=== PATIENT | female | born 1970 ===

== ENCOUNTER 2018-02-11 21:05 | Inpatient (IN) | payer SELFPAY ==
[~2018-02-11] VITALS: Ht 157.5 cm; Wt 72.6 kg
--- NOTE | 2018-02-11 23:17 | NUR ---
Dr. Britt at bedside for MSE.
[2018-02-11] MEDS ORDERED: ONDANSETRON 4 MG/2 ML VIAL IV ONE (23:30)
[2018-02-11] MEDS ORDERED: MORPHINE SULFATE 2 MG/1 ML DISP.SYRIN IV ONE (23:30)
[2018-02-11] MEDS ORDERED: IV NORMAL SALINE 1000 ML BAG IV ONE (23:30)
--- NOTE | 2018-02-11 23:42 | NUR ---
Pt out of ER for CT.
[2018-02-11 23:44] LABS: BASOPHILS # (AUTO) 0.1 K/uL (0.0-8.0); BASOPHILS % (AUTO) 0.7 % (0.0-2.0); EOSINOPHILS # (AUTO) 0.1 K/uL (0.0-0.7); EOSINOPHILS % (AUTO) 1.2 % (0.0-7.0); HEMATOCRIT 39.1 % (31.2-41.9); HEMOGLOBIN 13.2 g/dL (10.9-14.3); LYMPHOCYTES # (AUTO) 4.7 K/uL (20.0-40.0); LYMPHOCYTES % (AUTO) 39.4 % (20.5-51.5); MEAN CORPUSCULAR HEMOGLOBIN 30.7 uug (24.7-32.8); MEAN CORPUSCULAR HGB CONC 34 g/dL (32.3-35.6); MEAN CORPUSCULAR VOLUME 91.1 fL (75.5-95.3); MONOCYTES # (AUTO) 0.6 K/uL (2.0-10.0); MONOCYTES % (AUTO) 5.2 % (0.0-11.0); NEUTROPHILS # (AUTO) 6.4 K/uL (1.8-8.9); NEUTROPHILS % (AUTO) 53.5 % (38.5-71.5); PLATELET COUNT (AUTO) 371 K/uL (179-408); RED BLOOD CELL COUNT(AUTO) 4.29 MIL/uL (3.63-4.92); WHITE BLOOD COUNT (AUTO) 11.9 K/uL (3.8-11.8)
[2018-02-11] MEDS ORDERED: ONDANSETRON 4 MG/2 ML VIAL ONE (23:45)
[2018-02-11] MEDS ORDERED: KETOROLAC TROMETHAMINE 30 MG INJ IVP ONE (23:45)
[2018-02-11] MEDS ORDERED: KETOROLAC TROMETHAMINE 30 MG INJ ONE (23:49)
[2018-02-11 23:54] LABS: CREATININE 0.8 mg/dL (0.6-1.3); POTASSIUM 3.7 mmol/L (3.5-5.1)
[2018-02-11 23:59] LABS: BILIRUBIN,DIRECT 0.1 mg/dL (0.0-0.2); BILIRUBIN,TOTAL 0.2 mg/dL (0.2-1.0); TOTAL PROTEIN, SERUM 7.6 g/dL (6.4-8.2)
--- NOTE | 2018-02-12 | NUR ---
Pt back to ER from CT.
--- NOTE | 2018-02-12 00:14 | NUR ---
Dr. Britt on panel call with Dr. Quintero.
[2018-02-12] MEDS ORDERED: IV NS 1000 ML 1,000 ML IV PRN (00:54)
[2018-02-12] MEDS ORDERED: ACETAMINOPHEN 325 MG TABLET PO PRN (01:00)
[2018-02-12] MEDS ORDERED: MAGNESIUM HYDROXIDE 30 ML LIQUID UDC PO PRN (01:00)
[2018-02-12] MEDS ORDERED: ONDANSETRON 4 MG/2 ML VIAL IV PRN (01:00)
[2018-02-12] MEDS ORDERED: HYDROCODONE/APAP 5-325MG TABLET PO PRN (01:00)
[2018-02-12] MEDS ORDERED: Z GUARD REMEDY PASTE 57 GM TUBE TOP PRN (01:00)
--- NOTE | 2018-02-12 01:07 | NUR ---
Passed report to Jamia PIZARRO Tele.
--- NOTE | 2018-02-12 02:00 | NUR ---
RECEIVED PATIENT VIA W/C CHAIR FROM ER. PATIENT IS A/O X4. DENIES ANY PAIN, JUST C/O SOME DISCOMFORT IN NECK AREA. PATIENT STATED, SHE WAS [facility] A [employer] 2 DAYS AGO AND WENT INTO THE BATHROOM, WHERE SHE SLIPPED ON WATER, FELL AND HIT HER HEAD. PATIENT STATED THAT IS ALL SHE REMEMBERS. PLACED ON TELE ORDERED, SR. VSS. HEPLOCK INTACT AND PATENT. ORIENTED PATIENT TO ROOM AND CALL LIGHT. CALL LIGHT IN REACH. ALL NEEDS ATTENDED .WILL CONTINUE TO MONITOR AND ASSESS.
[2018-02-12 02:15] VITALS: BP 133/85
[2018-02-12] MEDS ORDERED: IBUPROFEN 600 MG TABLET PO PRN (02:45)
[2018-02-12 03:38] VITALS: BP 107/71
--- NOTE | 2018-02-12 06:12 | NUR ---
PATIENT ASLEEP IN BED. IVF INFUSING WELL. ON TELE SR. VS WNL. CALL LIGHT IN REACH. ALL NEEDS ATTENDED, WILL CONTINUE TO MONITOR.
[2018-02-12] MEDS ORDERED: LEVO75TA7 PO (09:56)
[2018-02-12] MEDS ORDERED: IBUP-1957 PO (12:58)
[2018-02-12] MEDS ORDERED: ONDA4TAB8 SL (12:58)
--- NOTE | 2018-02-12 13:30 | NUR ---
PATIENT DISCHARGED TO HOME. PATIENT/SPOUSE UPSET THAT WORDING "MILD CONCUSSION" WAS NOT INDICATED IN THE DISCHARGE PAPERS. PATIENT/SPOUSE STATED "SO THAT WE KNOW WHO TO MAURICE!" HISTOLOGIST NOTIFIED.
--- NOTE | 2018-02-12 13:40 | NUR ---
REPRINTED DISCHARGE PAPERS WHICH INCLUDED THE WORDING "MILD CONCUSSION" IN THE DISCHARGE SUMMARY.
--- NOTE | 2018-02-12 13:45 | NUR ---
PATIENT DISCHARGED TO HOME. PT STATED WILL FOLLOW UP OWN APPOINTMENT WITH PCP. IV ACCESS AND ID BAND REMOVED. DISCHARGED TEACHINGS/EDUCATION PROVIDED, PT/SPOUSE VERBALIZED UNDERSTANDING. PT IS ALERT, IN NO DISTRESS. BELONGING LIST ACCOUNTED AND SIGNED FOR.
--- NOTE | 2018-02-12 13:55 | NUR ---
PATIENT LEFT THE UNIT, AMBULATORY, ACCOMPANIED BY SPOUSE.
[2018-02-13] MEDS ORDERED: LEVOTHYROXINE SODIUM 75 MCG TABLET PO SCH (07:00)
== END 2018-02-12 13:50 | disposition home or self-care (01) | DRG 90 ==
LOC: ER 21:08 → TELE 02-12 01:22
PROVIDERS: ADMIT Internal Medicine; ATTEND Nurse Practitioner Acute Care
DX: S06.0X0A Concussion without loss of consciousness, initial encounter (principal); W01.0XXA Fall on same level from slipping, tripping and stumbling without subsequent striking against object, initial encounter; Y93.89 Activity, other specified; Y92.89 Other specified places as the place of occurrence of the external cause; G44.319 Acute post-traumatic headache, not intractable; M54.2 Cervicalgia; D72.828 Other elevated white blood cell count
CPT/HCPCS: 36415; 70030-TC; 70450; 71045; 72125; 83605; 85025; 85730; 87040; 93005; 93307; A4663; J1885; J2405; J7030